=== PATIENT | male | born 1950 | race Hispanic/Latino ===

== ENCOUNTER 2017-10-18 09:37 | Emergency (ER) | payer OTHER ==
[2017-10-18] MEDS ORDERED: ACETAMINOPHEN 325 MG TAB ONE (09:43)
[2017-10-18] MEDS ORDERED: ONDANSETRON ODT 4 MG TAB ONE (09:59)
[2017-10-18 10:18] LABS: RAPID GROUP A STREP NEGATIVE (NEGATIVE)
== END 2017-10-18 10:30 | disposition home or self-care (01) ==
LOC: EDH 09:37
DX: J09.X2 Influenza due to identified novel influenza A virus with other respiratory manifestations (principal); E11.9 Type 2 diabetes mellitus without complications
CPT/HCPCS: 87804; 87880